=== PATIENT | female | born 1995 | race Hispanic/Latino ===

== ENCOUNTER 2023-04-01 00:01 | Emergency (ER) | payer SELFPAY ==
[~2023-04-01] VITALS: Ht 147.3 cm; Wt 46.3 kg
[2023-04-01] MEDS ORDERED: ONDANSETRON HCL INJ 2MG/ML 2ML 2 MG/ML VIAL IV STA (00:03)
[2023-04-01] MEDS ORDERED: SODIUM CHLORIDE 0.9% 1000ML 1,000 ML IV STA (00:03)
[2023-04-01] MEDS ORDERED: Morphine 4mg INJECTION 4 MG/ML INJ IV ONE (00:15)
[2023-04-01 00:21] LABS: BASOPHILS % 0.3 % (0.0-1.0); HEMATOCRIT 44.5 % (34.2-44.1); HEMOGLOBIN 14.4 g/dL (12.0-16.0); LYMPHOCYTES % 14.5 % (18.0-39.1); MEAN CORPUSCULAR HGB CONC 32.4 g/dL (31-35); MEAN CORPUSCULAR VOLUME 89.7 fL (81-99); MONOCYTES % 4.1 % (4.4-11.3); PLATELET COUNT 382 x10e3/uL (140-360); RED BLOOD COUNT 4.96 x10e6/uL (3.6-5.1); RED CELL DISTRIBUTION WIDTH 12.4 % (11.7-14.4)
[2023-04-01 00:22] LABS: BASOPHILS # (AUTO) 0.1 (0.0-0.1); MONOCYTES # (AUTO) 0.9 (0.2-0.8); NEUTROPHILS # (AUTO) 16.7 (2.1-6.9)
[2023-04-01 00:24] LABS: AMPHETAMINES SCREEN,URINE NEGATIVE (NEGATIVE); BENZODIAZEPINES SCREEN,URINE NEGATIVE (NEGATIVE); PHENCYCLIDINE SCREEN,URINE NEGATIVE (NEGATIVE)
[2023-04-01 00:36] LABS: ALBUMIN 4.6 g/dL (3.5-5.0); ALBUMIN/GLOBULIN RATIO 0.9 (0.8-2.0); ANION GAP 26.9 mmol/L (8-16); CALCIUM 9.5 mg/dL (8.4-10.2); CREATININE, SERUM 1.08 mg/dL (0.57-1.11); POTASSIUM 3.9 mmol/L (3.5-5.1)
[2023-04-01] MEDS ORDERED: PIPERACILLIN/TAZOBACTAM 3.375 GM VIAL ONE (00:42)
[2023-04-01] MEDS ORDERED: IOPAMIDOL 370 MG/ML 100 ML INFUS..BTL INJ ONE (00:44)
[2023-04-01] MEDS ORDERED: INSULIN REGULAR, HUMAN 3ML VL 100 UNIT in SODIUM CHLORIDE 0.9% 100 ML IV SCH ×2 (00:45)
[2023-04-01] MEDS ORDERED: Morphine 4mg INJECTION 4 MG/ML INJ IV PRN (00:45)
[2023-04-01] MEDS ORDERED: SODIUM CHLORIDE 0.9% 1000ML 1,000 ML IV SCH ×2 (00:45)
[2023-04-01] MEDS ORDERED: POTASSIUM CHLORIDE 20MEQ/100ML 200 ML IV PRN (00:45)
[2023-04-01] MEDS ORDERED: MAGNESIUM SULF 1GRAM/DEXTROSE 100 ML IV PRN (00:45)
[2023-04-01] MEDS ORDERED: DEXTROSE 5%/0.45% SOD CHL 1,000 ML IV SCH (00:45)
[2023-04-01] MEDS ORDERED: ONDANSETRON HCL INJ 2MG/ML 2ML 2 MG/ML VIAL IV PRN (00:45)
[2023-04-01 01:25] LABS: LIPASE 13 U/L (8-78)
[2023-04-01] MEDS ORDERED: FENTANYL CITRATE/PF 100MCG/2 ML INJ IV STA (01:48)
[2023-04-01 02:40] VITALS: BP 152/104; PULSE 122; RESP 27; TEMP 96; O2SAT 100
== END 2023-04-01 03:09 | disposition other institution (70) ==
LOC: ER 00:04
DX: R10.13 Epigastric pain (principal); R11.2 Nausea with vomiting, unspecified; E11.10 Type 2 diabetes mellitus with ketoacidosis without coma; E11.65 Type 2 diabetes mellitus with hyperglycemia; R94.31 Abnormal electrocardiogram [ECG] [EKG]; Z20.822 Contact with and (suspected) exposure to COVID-19
CPT/HCPCS: 36415; 71045; 74177; 80053; 80307; 80320; 81025; 82948; 83605; 83690; 85025; 87040; 99284; J2270; J2405; J2543; J3010; J7030; J7050; Q9967; U0002

== ENCOUNTER 2025-05-04 15:47 | Inpatient (IN) | payer SELFPAY ==
[~2025-05-04] VITALS: Ht 142.2 cm; Wt 50.3 kg
[2025-05-04] VITALS (18 sets, daily range): BP systolic 108–126; BP diastolic 66–81; PULSE 101–129; RESP 18–36; TEMP 90.7–98.2; O2SAT 98–100
[2025-05-04] MEDS ORDERED: POTASSIUM CHLORIDE 20MEQ/100ML 200 ML IV PRN (16:00)
[2025-05-04 16:03] LABS: BASOPHILS # (AUTO) 0.1 (0.0-0.1); BASOPHILS % 0.3 % (0.0-1.0); EOSINOPHILS # (AUTO) 0.1 (0.0-0.4); EOSINOPHILS % 0.4 % (0.0-6.0); HEMOGLOBIN 14.3 g/dL (12.0-16.0); LYMPHOCYTES # (AUTO) 4.2 (1.0-3.2); LYMPHOCYTES % 20.7 % (18.0-39.1); MEAN CORPUSCULAR HEMOGLOBIN 29.5 pg (28-32); MEAN CORPUSCULAR HGB CONC 32.5 g/dL (31-35); MEAN CORPUSCULAR VOLUME 90.9 fL (81-99); MONOCYTES # (AUTO) 1.2 (0.2-0.8); MONOCYTES % 5.6 % (4.4-11.3); NEUTROPHILS # (AUTO) 14.6 (2.1-6.9); NEUTROPHILS % 71.8 % (38.7-80.0); PLATELET COUNT 320 x10e3/uL (140-360); RED BLOOD COUNT 4.84 x10e6/uL (3.6-5.1); WHITE BLOOD COUNT 20.39 x10e3/uL (4.8-10.8)
[2025-05-04] MEDS: LACTATED RINGER'S 1,000 ML INJ ONE ×3 (16:07→16:31)
[2025-05-04] MEDS ORDERED: INSULIN REGULAR, HUMAN 100 UNIT/1 ML ONE (16:15)
[2025-05-04 16:23] LABS: ALANINE AMINOTRANSFERASE 42 IU/L (0-55); ALBUMIN 4.1 g/dL (3.5-5.0); ALBUMIN/GLOBULIN RATIO 0.8 (0.8-2.0); ALKALINE PHOSPHATASE 91 IU/L (40-150); BILIRUBIN,TOTAL 0.3 mg/dL (0.2-1.2); BLOOD UREA NITROGEN 26 mg/dL (7-26); BUN/CREATININE RATIO 17 (6-25); CALCIUM 9.6 mg/dL (8.4-10.2); CHLORIDE 101 mmol/L (98-107); CREATININE, SERUM 1.54 mg/dL (0.57-1.11); EST GLOMERULAR FILTRATION RATE 46 ML/MIN (>=60); POTASSIUM 4.1 mmol/L (3.5-5.1); SODIUM 129 mmol/L (136-145); TOTAL PROTEIN 9.3 g/dL (6.5-8.1)
[2025-05-04 16:25] LABS: ANION GAP 27.1 mmol/L (8-16)
[2025-05-04 16:26] LABS: CARBON DIOXIDE < 5 mmol/L (22-29); GLUCOSE 518 mg/dL (74-118)
[2025-05-04 16:40] LABS: ABG BASE EXCESS < -30.0 mmol/L (-2 - 3); ABG HCO3 1 mmol/L (22-26); ABG PCO2 6 mmHg (35-45); ABG PH 6.97 (7.35-7.45); ABG PO2 166 mmHg (80-105); ABG TCO2 < 5
[2025-05-04 16:42] LABS: ACETAMINOPHEN < 3.0 ug/mL (10-30); ETHANOL < 10.0 mg/dL (0.0-10.0)
[2025-05-04] MEDS: INSULIN REGULAR, HUMAN 100 UNIT/1 ML IV ONE (16:43)
[2025-05-04] MEDS: INSULIN REGULAR, HUMAN 3ML VL 100 UNIT in SODIUM CHLORIDE 0.9% 99 ML IV SCH (17:01)
[2025-05-04] MEDS: SODIUM CHLORIDE 0.9% 1000ML 1,000 ML IV SCH (17:02)
[2025-05-04 17:11] LABS: AMPHETAMINES SCREEN,URINE NEGATIVE (NEGATIVE); BENZODIAZEPINES SCREEN,URINE NEGATIVE (NEGATIVE); CANNABINOIDS SCREEN,URINE NEGATIVE (NEGATIVE); COCAINE SCREEN,URINE NEGATIVE (NEGATIVE); METHADONE SCREEN, URINE NEGATIVE (NEGATIVE); OPIATES SCREEN,URINE NEGATIVE (NEGATIVE); PHENCYCLIDINE SCREEN,URINE NEGATIVE (NEGATIVE)
[2025-05-04 17:25] LABS: BILIRUBIN,URINE NEGATIVE (NEGATIVE); CLARITY,URINE SL CLOUDY (CLEAR); COLOR,URINE YELLOW (YELLOW); GLUCOSE, URINE 500 (NEGATIVE); KETONES,URINE >=160 (NEGATIVE); LEUKOCYTE ESTERASE ,URINE NEGATIVE (NEGATIVE); NITRITE,URINE NEGATIVE (NEGATIVE); PH,URINE 5.5 (5 - 7); PROTEIN,URINE DIPSTICK 2+ (NEGATIVE); URINE UROBILINOGEN 0.2 mg/dL (0.2 - 1)
[2025-05-04 17:26] LABS: BACTERIA,URINE MODERATE /HPF; EPITHELIAL CELLS,URINE MODERATE /LPF; TRANSITIONAL EPI CELLS,URINE MODERATE
[2025-05-04 19:16] LABS: CHOL/HDL RATIO 5.7 (3.0-3.6)
[2025-05-04 19:36] LABS: THYROID STIMULATING HORMONE 0.396 uIU/mL (0.350-4.940)
[2025-05-04 20:19] LABS: BLOOD UREA NITROGEN 21 mg/dL (7-26); BUN/CREATININE RATIO 19 (6-25); CALCIUM 8.4 mg/dL (8.4-10.2); CHLORIDE 107 mmol/L (98-107); CREATININE, SERUM 1.09 mg/dL (0.57-1.11); EST GLOMERULAR FILTRATION RATE 70 ML/MIN (>=60); GLUCOSE 341 mg/dL (74-118); MAGNESIUM 1.6 MG/DL (1.3-2.1); POTASSIUM 4.1 mmol/L (3.5-5.1); SODIUM 128 mmol/L (136-145)
[2025-05-04 20:43] LABS: ANION GAP 20.1 mmol/L (8-16); CARBON DIOXIDE < 5 mmol/L (22-29)
[2025-05-04] MEDS: MAGNESIUM SULF 1GRAM/DEXTROSE 100 ML IV PRN (21:03)
[2025-05-05] VITALS (44 sets, daily range): BP systolic 93–131; BP diastolic 56–86; PULSE 85–139; RESP 10–25; TEMP 98–100.4; O2SAT 98–100
[2025-05-05] MEDS: DEXTROSE 5%/0.45% SOD CHL 1,000 ML IV SCH (00:20)
[2025-05-05] MEDS: AMIODARONE HCL 150 MG/100 ML BAG IV ONE (00:59)
[2025-05-05] MEDS: AMIODARONE 900MG 900 MG in Premix Bag 1 BAG IV SCH (01:16)
[2025-05-05 06:44] LABS: BASOPHILS % 0.1 % (0.0-1.0); HEMATOCRIT 33.7 % (34.2-44.1); HEMOGLOBIN 11.4 g/dL (12.0-16.0); LYMPHOCYTES # (AUTO) 1.1 (1.0-3.2); MEAN CORPUSCULAR HEMOGLOBIN 29.3 pg (28-32); MEAN CORPUSCULAR HGB CONC 33.8 g/dL (31-35); MEAN CORPUSCULAR VOLUME 86.6 fL (81-99); MONOCYTES # (AUTO) 0.7 (0.2-0.8); MONOCYTES % 7.2 % (4.4-11.3); NEUTROPHILS # (AUTO) 7.8 (2.1-6.9); NEUTROPHILS % 80.9 % (38.7-80.0); PLATELET COUNT 208 x10e3/uL (140-360); RED BLOOD COUNT 3.89 x10e6/uL (3.6-5.1); RED CELL DISTRIBUTION WIDTH 11.9 % (11.7-14.4); WHITE BLOOD COUNT 9.65 x10e3/uL (4.8-10.8)
[2025-05-05 07:17] LABS: ANION GAP 11.5 mmol/L (8-16); CALCIUM 7.9 mg/dL (8.4-10.2); CREATININE, SERUM 0.84 mg/dL (0.57-1.11); POTASSIUM 3.5 mmol/L (3.5-5.1)
[2025-05-05 07:59] LABS: ABG BASE EXCESS < -30.0 mmol/L (-2 - 3); ABG HCO3 1 mmol/L (22-26); ABG PH 6.97 (7.35-7.45); ABG PO2 166 mmHg (80-105); ABG TCO2 < 5
[2025-05-05] MEDS: ONDANSETRON HCL INJ 2MG/ML 2ML 2 MG/ML VIAL IV PRN (08:53)
[2025-05-05] MEDS: ACETAMINOPHEN 325 MG TAB PO PRN (12:03)
[2025-05-05 14:20] LABS: FREE T4 (FREE THYROXINE) 1.08 ng/dL (0.8-1.8); THYROID STIMULATING HORMONE 0.218 uIU/mL (0.350-4.940)
[2025-05-05 15:09] LABS: ANION GAP 10.9 mmol/L (8-16); CALCIUM 7.7 mg/dL (8.4-10.2); CREATININE, SERUM 0.76 mg/dL (0.57-1.11)
[2025-05-05 15:12] LABS: POTASSIUM 2.9 mmol/L (3.5-5.1)
[2025-05-05] MEDS: POTASSIUM CHLORIDE 20MEQ/100ML 100 ML INJ PRN (15:38)
[2025-05-05] MEDS: POTASSIUM CHLORIDE 20 MEQ TAB CR PO STA (15:38)
[2025-05-06] VITALS (25 sets, daily range): BP systolic 103–136; BP diastolic 60–85; PULSE 96–143; RESP 16–31; TEMP 98.8–102.6; O2SAT 99–100
[2025-05-06 02:04] LABS: ANION GAP 13.3 mmol/L (8-16); CALCIUM 8.2 mg/dL (8.4-10.2); CREATININE, SERUM 0.74 mg/dL (0.57-1.11)
[2025-05-06 02:06] LABS: POTASSIUM 3.3 mmol/L (3.5-5.1)
[2025-05-06] MEDS: AMIODARONE 900MG 500 ML IV ONE ×2 (04:09→04:10)
[2025-05-06 06:50] LABS: BASOPHILS % 0.2 % (0.0-1.0); HEMATOCRIT 31.2 % (34.2-44.1); HEMOGLOBIN 11.1 g/dL (12.0-16.0); LYMPHOCYTES # (AUTO) 0.8 (1.0-3.2); LYMPHOCYTES % 15.3 % (18.0-39.1); MEAN CORPUSCULAR HEMOGLOBIN 29.4 pg (28-32); MEAN CORPUSCULAR HGB CONC 35.6 g/dL (31-35); MEAN CORPUSCULAR VOLUME 82.8 fL (81-99); MONOCYTES # (AUTO) 0.3 (0.2-0.8); MONOCYTES % 5.3 % (4.4-11.3); NEUTROPHILS # (AUTO) 3.8 (2.1-6.9); NEUTROPHILS % 78.2 % (38.7-80.0); PLATELET COUNT 163 x10e3/uL (140-360); RED BLOOD COUNT 3.77 x10e6/uL (3.6-5.1); RED CELL DISTRIBUTION WIDTH 12.1 % (11.7-14.4)
[2025-05-06 07:28] LABS: ALBUMIN/GLOBULIN RATIO 0.8 (0.8-2.0); ANION GAP 14.4 mmol/L (8-16); BILIRUBIN,TOTAL 0.3 mg/dL (0.2-1.2); CALCIUM 8.1 mg/dL (8.4-10.2); CREATININE, SERUM 0.75 mg/dL (0.57-1.11); TOTAL PROTEIN 6.6 g/dL (6.5-8.1)
[2025-05-06 07:33] LABS: POTASSIUM 3.4 mmol/L (3.5-5.1)
[2025-05-06] MEDS: POTASSIUM CHLORIDE 20MEQ/100ML 100 ML INJ PRN (10:44)
[2025-05-06 13:33] LABS: ANION GAP 12.8 mmol/L (8-16); CREATININE, SERUM 0.75 mg/dL (0.57-1.11); MAGNESIUM 1.6 MG/DL (1.3-2.1)
[2025-05-06 13:39] LABS: POTASSIUM 2.8 mmol/L (3.5-5.1)
[2025-05-06] MEDS: MAGNESIUM SULF 1GRAM/DEXTROSE 100 ML IV PRN (14:03)
[2025-05-06] MEDS: INSULIN REGULAR, HUMAN 3ML VL 100 UNIT in SODIUM CHLORIDE 0.9% 99 ML IV SCH (17:44)
[2025-05-06] MEDS ORDERED: ACETAMINOPHEN 325 MG TAB PO PRN (20:00)
[2025-05-06] MEDS: SODIUM CHLORIDE 0.9% 1000ML 1,000 ML IV ONE (20:18)
[2025-05-06] MEDS: INSULIN GLARGINE 100 UNITS/ML VIAL SQ SCH (20:28)
[2025-05-06 21:03] LABS: ANION GAP 15.1 mmol/L (8-16); BLOOD UREA NITROGEN < 5 mg/dL (7-26); CHLORIDE 107 mmol/L (98-107); CREATININE, SERUM 0.78 mg/dL (0.57-1.11); EST GLOMERULAR FILTRATION RATE 105 ML/MIN (>=60); GLUCOSE 148 mg/dL (74-118); MAGNESIUM 1.8 MG/DL (1.3-2.1); SODIUM 128 mmol/L (136-145)
[2025-05-06 21:04] LABS: POTASSIUM 3.1 mmol/L (3.5-5.1)
[2025-05-06 21:05] LABS: BUN/CREATININE RATIO 6 (6-25)
[2025-05-06 21:06] LABS: CARBON DIOXIDE 9 mmol/L (22-29)
[2025-05-06 21:15] LABS: INFLUENZA A AG NEGATIVE (NEGATIVE)
[2025-05-06 21:16] LABS: CORONAVIRUS COVID-19 AG NEGATIVE (NEGATIVE); INFLUENZA B AG NEGATIVE (NEGATIVE)
[2025-05-07] VITALS (21 sets, daily range): BP systolic 95–136; BP diastolic 64–102; PULSE 105–140; RESP 14–27; TEMP 98.2–102.3; O2SAT 99–100
[2025-05-07 07:38] LABS: ANION GAP 11.7 mmol/L (8-16); BLOOD UREA NITROGEN < 5 mg/dL (7-26); CALCIUM 7.2 mg/dL (8.4-10.2); CHLORIDE 111 mmol/L (98-107); CREATININE, SERUM 0.75 mg/dL (0.57-1.11); EST GLOMERULAR FILTRATION RATE 110 ML/MIN (>=60); GLUCOSE 214 mg/dL (74-118); MAGNESIUM 1.5 MG/DL (1.3-2.1); SODIUM 128 mmol/L (136-145)
[2025-05-07 07:41] LABS: BUN/CREATININE RATIO 7 (6-25); POTASSIUM 2.7 mmol/L (3.5-5.1)
[2025-05-07 07:42] LABS: CARBON DIOXIDE 8 mmol/L (22-29)
[2025-05-07] MEDS: ACETAMINOPHEN 1000 MG/100 ML IV ONE (08:14)
[2025-05-07 08:32] LABS: HIV 1&2 AB SCREEN NON-REACTIVE (NONREACTIVE); HIV- 1 P24 AG SCREEN NON-REACTIVE (NONREACTIVE)
[2025-05-07] MEDS: INSULIN LISPRO 100 UNIT/1 ML 3ML VIAL SQ ONE (13:09)
[2025-05-07] MEDS: DEXTROSE 5%/0.45% SOD CHL 1,000 ML IV SCH (14:02)
[2025-05-07] MEDS: INSULIN LISPRO 100 UNIT/1 ML 3ML VIAL SQ SCH ×2 (16:30→16:31)
[2025-05-07 17:08] LABS: ANION GAP 13.3 mmol/L (8-16); CALCIUM 7.9 mg/dL (8.4-10.2); CREATININE, SERUM 0.72 mg/dL (0.57-1.11)
[2025-05-07 17:16] LABS: POTASSIUM 3.3 mmol/L (3.5-5.1)
[2025-05-07] MEDS ORDERED: ONDANSETRON HCL INJ 2MG/ML 2ML 2 MG/ML VIAL ONE (17:53)
[2025-05-07] MEDS ORDERED: SUGAMMADEX SODIUM 200 MG/2 ML VIAL IV ONE (17:54)
[2025-05-07] MEDS: INSULIN GLARGINE 100 UNITS/ML VIAL SQ SCH (20:43)
[2025-05-08] VITALS (20 sets, daily range): BP systolic 91–125; BP diastolic 64–86; PULSE 103–144; RESP 14–26; TEMP 97.8–103.2; O2SAT 98–100
[2025-05-08 06:44] LABS: BASOPHILS % 0.6 % (0.0-1.0); EOSINOPHILS % 0.2 % (0.0-6.0); HEMATOCRIT 31.3 % (34.2-44.1); HEMOGLOBIN 11.2 g/dL (12.0-16.0); LYMPHOCYTES # (AUTO) 1.2 (1.0-3.2); LYMPHOCYTES % 18.8 % (18.0-39.1); MEAN CORPUSCULAR HEMOGLOBIN 29.6 pg (28-32); MEAN CORPUSCULAR HGB CONC 35.8 g/dL (31-35); MEAN CORPUSCULAR VOLUME 82.6 fL (81-99); MONOCYTES # (AUTO) 0.2 (0.2-0.8); MONOCYTES % 3.1 % (4.4-11.3); NEUTROPHILS # (AUTO) 4.9 (2.1-6.9); NEUTROPHILS % 76.2 % (38.7-80.0); PLATELET COUNT 101 x10e3/uL (140-360); RED BLOOD COUNT 3.79 x10e6/uL (3.6-5.1); RED CELL DISTRIBUTION WIDTH 12.4 % (11.7-14.4); WHITE BLOOD COUNT 6.37 x10e3/uL (4.8-10.8)
[2025-05-08 06:57] LABS: ALBUMIN 2.5 g/dL (3.5-5.0); ALBUMIN/GLOBULIN RATIO 0.7 (0.8-2.0); ANION GAP 12.9 mmol/L (8-16); BILIRUBIN,TOTAL 0.6 mg/dL (0.2-1.2); CALCIUM 7.5 mg/dL (8.4-10.2); CREATININE, SERUM 0.65 mg/dL (0.57-1.11); TOTAL PROTEIN 6.3 g/dL (6.5-8.1)
[2025-05-08 07:07] LABS: POTASSIUM 2.9 mmol/L (3.5-5.1)
[2025-05-08] MEDS: POTASSIUM CHLORIDE 10MEQ EA PO ONE (08:05)
[2025-05-08] MEDS: POTASSIUM CHLORIDE 20MEQ/100ML 200 ML IV PRN (10:49)
[2025-05-08 12:01] LABS: BAND NEUTROPHILS % (MANUAL) 29 %; LYMPHOCYTES % (MANUAL) 18 % (19-48); MONOCYTES % (MANUAL) 2 % (3.4-9.0); NEUTROPHILS % (MANUAL) 51 % (40-74); PLATELET ESTIMATE SLIGHTLY DECREASED; PLATELET MORPHOLOGY COMMENT NORMAL; RBC MORPHOLOGY COMMENT NORMAL
[2025-05-08] MEDS ORDERED: D5.45%NS/KCL 20MEQ 1,000 ML IV ONE (18:45)
[2025-05-08] MEDS ORDERED: POTASSIUM CHLORIDE 20 MEQ TAB CR PO SCH (19:00)
[2025-05-08] MEDS: D5.45%NS/KCL 20MEQ 1,000 ML IV ONE (19:28)
[2025-05-09] VITALS (24 sets, daily range): BP systolic 87–133; BP diastolic 58–92; PULSE 113–147; RESP 15–23; TEMP 98.3–101; O2SAT 98–100
[2025-05-09 06:38] LABS: BASOPHILS % 0.3 % (0.0-1.0); HEMATOCRIT 31.4 % (34.2-44.1); HEMOGLOBIN 11.2 g/dL (12.0-16.0); LYMPHOCYTES # (AUTO) 1.3 (1.0-3.2); LYMPHOCYTES % 18.3 % (18.0-39.1); MEAN CORPUSCULAR HEMOGLOBIN 29.2 pg (28-32); MEAN CORPUSCULAR HGB CONC 35.7 g/dL (31-35); MONOCYTES # (AUTO) 0.2 (0.2-0.8); MONOCYTES % 2.5 % (4.4-11.3); NEUTROPHILS # (AUTO) 5.7 (2.1-6.9); NEUTROPHILS % 77.9 % (38.7-80.0); PLATELET COUNT 124 x10e3/uL (140-360); RED BLOOD COUNT 3.83 x10e6/uL (3.6-5.1); RED CELL DISTRIBUTION WIDTH 12.8 % (11.7-14.4); WHITE BLOOD COUNT 7.32 x10e3/uL (4.8-10.8)
[2025-05-09 07:03] LABS: ALBUMIN 2.6 g/dL (3.5-5.0); ALBUMIN/GLOBULIN RATIO 0.7 (0.8-2.0); ANION GAP 14.9 mmol/L (8-16); BILIRUBIN,TOTAL 0.7 mg/dL (0.2-1.2); CALCIUM 7.7 mg/dL (8.4-10.2); CREATININE, SERUM 0.75 mg/dL (0.57-1.11); POTASSIUM 3.9 mmol/L (3.5-5.1); TOTAL PROTEIN 6.6 g/dL (6.5-8.1)
[2025-05-09 07:23] LABS: T3 UPTAKE 31.99 % (22.5-37.0)
[2025-05-09 07:24] LABS: T4 (THYROXINE) 7.55 ug/dL (4.5-10.9); THYROID STIMULATING HORMONE 1.414 uIU/mL (0.350-4.940)
[2025-05-09] MEDS: POTASSIUM CHLORIDE 40 MEQ in DEXTROSE 5%/0.45% SOD CHL 1,000 ML IV ONE (09:39)
[2025-05-09] MEDS: SODIUM CHLORIDE 0.9% 500ML 500 ML IV ONE (10:48)
[2025-05-09] MEDS: Doxycycline IV 100 MG in SODIUM CHLORIDE 0.9% 100 ML IV SCH (14:05)
[2025-05-09] MEDS ORDERED: SODIUM CHLORIDE 0.9% 100 ML ONE (15:08)
[2025-05-09] MEDS ORDERED: IOPAMIDOL 370 MG/ML 100 ML INFUS..BTL INJ ONE (15:08)
[2025-05-10] VITALS (12 sets, daily range): BP systolic 100–121; BP diastolic 66–85; PULSE 109–135; RESP 14–21; TEMP 98–102.8; O2SAT 97–100
[2025-05-10 06:49] LABS: BASOPHILS % 0.3 % (0.0-1.0); HEMATOCRIT 29.1 % (34.2-44.1); HEMOGLOBIN 10.4 g/dL (12.0-16.0); LYMPHOCYTES # (AUTO) 2.3 (1.0-3.2); MEAN CORPUSCULAR HEMOGLOBIN 29.5 pg (28-32); MEAN CORPUSCULAR HGB CONC 35.7 g/dL (31-35); MEAN CORPUSCULAR VOLUME 82.4 fL (81-99); MONOCYTES # (AUTO) 0.5 (0.2-0.8); MONOCYTES % 6.5 % (4.4-11.3); NEUTROPHILS # (AUTO) 4.3 (2.1-6.9); NEUTROPHILS % 60.4 % (38.7-80.0); PLATELET COUNT 140 x10e3/uL (140-360); RED BLOOD COUNT 3.53 x10e6/uL (3.6-5.1); RED CELL DISTRIBUTION WIDTH 12.7 % (11.7-14.4); WHITE BLOOD COUNT 7.13 x10e3/uL (4.8-10.8)
[2025-05-10 07:22] LABS: ALBUMIN 2.3 g/dL (3.5-5.0); ALBUMIN/GLOBULIN RATIO 0.6 (0.8-2.0); ANION GAP 13.9 mmol/L (8-16); BILIRUBIN,TOTAL 0.9 mg/dL (0.2-1.2); CALCIUM 7.5 mg/dL (8.4-10.2); CREATININE, SERUM 0.64 mg/dL (0.57-1.11); POTASSIUM 3.9 mmol/L (3.5-5.1); TOTAL PROTEIN 6.1 g/dL (6.5-8.1)
[2025-05-10 10:53] LABS: LYMPHOCYTES % (MANUAL) 37 % (19-48); MONOCYTES % (MANUAL) 4 % (3.4-9.0); NEUTROPHILS % (MANUAL) 56 % (40-74); REACTIVE LYMPHOCYTES 3
[2025-05-10 10:54] LABS: PLATELET ESTIMATE ADEQUATE; PLATELET MORPHOLOGY COMMENT NORMAL; RBC MORPHOLOGY COMMENT NORMAL
[2025-05-10] MEDS: DEXTROSE 50% SYRINGE 50 ML IV PRN (16:32)
[2025-05-11] VITALS (13 sets, daily range): BP systolic 89–113; BP diastolic 54–80; PULSE 102–131; RESP 13–21; TEMP 98–100.7; O2SAT 98–100
[2025-05-11 09:54] LABS: C-REACTIVE PROTEIN 251 mg/L (0-10)
[2025-05-11 11:12] LABS: RHEUMATOID FACTOR <10.0 IU/mL (<14.0)
[2025-05-11 13:42] LABS: CYCLIC CITRULLINATED PEPTID AB 3 units (0-19)
[2025-05-11] MEDS: INSULIN LISPRO 100 UNIT/1 ML 3ML VIAL SQ SCH (18:01)
[2025-05-12] VITALS (19 sets, daily range): BP systolic 97–119; BP diastolic 64–81; PULSE 101–130; RESP 14–23; TEMP 97.8–98.8; O2SAT 98–100
[2025-05-12 06:49] LABS: ALBUMIN 2.4 g/dL (3.5-5.0); ALBUMIN/GLOBULIN RATIO 0.5 (0.8-2.0); ANION GAP 14.7 mmol/L (8-16); BILIRUBIN,TOTAL 0.8 mg/dL (0.2-1.2); CALCIUM 8.2 mg/dL (8.4-10.2); CREATININE, SERUM 0.83 mg/dL (0.57-1.11); POTASSIUM 3.7 mmol/L (3.5-5.1); TOTAL PROTEIN 7.2 g/dL (6.5-8.1)
[2025-05-13] VITALS (8 sets, daily range): BP systolic 94–109; BP diastolic 61–74; PULSE 92–107; RESP 17–18; TEMP 97.6–98.6; O2SAT 99–100
[2025-05-13] MEDS: SODIUM CHLORIDE 0.9% 250ML 250 ML ONE (00:23)
[2025-05-13 07:00] LABS: BASOPHILS % 0.4 % (0.0-1.0); EOSINOPHILS % 0.4 % (0.0-6.0); HEMATOCRIT 24.7 % (34.2-44.1); HEMOGLOBIN 8.6 g/dL (12.0-16.0); LYMPHOCYTES # (AUTO) 3.3 (1.0-3.2); LYMPHOCYTES % 49.2 % (18.0-39.1); MEAN CORPUSCULAR HEMOGLOBIN 29.5 pg (28-32); MEAN CORPUSCULAR HGB CONC 34.8 g/dL (31-35); MEAN CORPUSCULAR VOLUME 84.6 fL (81-99); MONOCYTES # (AUTO) 0.7 (0.2-0.8); MONOCYTES % 9.7 % (4.4-11.3); NEUTROPHILS # (AUTO) 2.7 (2.1-6.9); NEUTROPHILS % 39.9 % (38.7-80.0); PLATELET COUNT 241 x10e3/uL (140-360); RED BLOOD COUNT 2.92 x10e6/uL (3.6-5.1); RED CELL DISTRIBUTION WIDTH 13.1 % (11.7-14.4); WHITE BLOOD COUNT 6.79 x10e3/uL (4.8-10.8)
[2025-05-13 07:07] LABS: ALBUMIN/GLOBULIN RATIO 0.5 (0.8-2.0); ANION GAP 13.7 mmol/L (8-16); BILIRUBIN,TOTAL 0.6 mg/dL (0.2-1.2); CALCIUM 7.7 mg/dL (8.4-10.2); CREATININE, SERUM 0.7 mg/dL (0.57-1.11); POTASSIUM 3.7 mmol/L (3.5-5.1); TOTAL PROTEIN 6.2 g/dL (6.5-8.1)
[2025-05-13 11:15] LABS: EOSINOPHILS % (MANUAL) 2 % (0-7); LYMPHOCYTES % (MANUAL) 54 % (19-48); MONOCYTES % (MANUAL) 6 % (3.4-9.0); NEUTROPHILS % (MANUAL) 38 % (40-74); PLATELET ESTIMATE ADEQUATE; PLATELET MORPHOLOGY COMMENT NORMAL; RBC MORPHOLOGY COMMENT NORMAL
[2025-05-13] MEDS ORDERED: INSULIN LISPRO 100 UNIT/1 ML 3ML VIAL SQ SCH (16:30)
[2025-05-13] MEDS: INSULIN LISPRO 100 UNIT/1 ML 3ML VIAL SQ SCH (17:36)
[2025-05-13] MEDS: POLYETHYLENE GLYCOL 3350 17 GM PACK PO SCH (17:38)
[2025-05-14] VITALS (9 sets, daily range): BP systolic 72–119; BP diastolic 63–80; PULSE 86–108; RESP 18–20; TEMP 97.6–98.5; O2SAT 100
[2025-05-14 05:54] LABS: MYCOPLASMA PNEUMO IGG <100 U/mL (0-99); MYCOPLASMA PNEUMO IGM <770 U/mL (0-769)
[2025-05-14 06:33] LABS: BASOPHILS % 0.5 % (0.0-1.0); EOSINOPHILS # (AUTO) 0.1 (0.0-0.4); EOSINOPHILS % 0.8 % (0.0-6.0); HEMATOCRIT 24.5 % (34.2-44.1); HEMOGLOBIN 8.2 g/dL (12.0-16.0); LYMPHOCYTES # (AUTO) 3.2 (1.0-3.2); LYMPHOCYTES % 54.3 % (18.0-39.1); MEAN CORPUSCULAR HEMOGLOBIN 29.4 pg (28-32); MEAN CORPUSCULAR HGB CONC 33.5 g/dL (31-35); MEAN CORPUSCULAR VOLUME 87.8 fL (81-99); MONOCYTES # (AUTO) 0.5 (0.2-0.8); MONOCYTES % 7.5 % (4.4-11.3); NEUTROPHILS # (AUTO) 2.2 (2.1-6.9); NEUTROPHILS % 36.4 % (38.7-80.0); PLATELET COUNT 259 x10e3/uL (140-360); RED BLOOD COUNT 2.79 x10e6/uL (3.6-5.1); RED CELL DISTRIBUTION WIDTH 12.8 % (11.7-14.4); WHITE BLOOD COUNT 5.97 x10e3/uL (4.8-10.8)
[2025-05-14 07:05] LABS: ALBUMIN 2.1 g/dL (3.5-5.0); ALBUMIN/GLOBULIN RATIO 0.5 (0.8-2.0); BILIRUBIN,TOTAL 0.4 mg/dL (0.2-1.2); CREATININE, SERUM 0.71 mg/dL (0.57-1.11); TOTAL PROTEIN 6.4 g/dL (6.5-8.1)
[2025-05-14 10:39] LABS: EOSINOPHILS % (MANUAL) 1 % (0-7); LYMPHOCYTES % (MANUAL) 39 % (19-48); MONOCYTES % (MANUAL) 7 % (3.4-9.0); NEUTROPHILS % (MANUAL) 52 % (40-74); PLATELET ESTIMATE ADEQUATE; PLATELET MORPHOLOGY COMMENT NORMAL; RBC MORPHOLOGY COMMENT NORMAL; REACTIVE LYMPHOCYTES 1
[2025-05-14] MEDS: INSULIN LISPRO 100 UNIT/1 ML 3ML VIAL SQ SCH (16:30)
[2025-05-15] VITALS (7 sets, daily range): BP systolic 108–120; BP diastolic 76–82; PULSE 87–105; RESP 17–18; TEMP 97.8–98.7; O2SAT 99–100
[2025-05-15] MEDS: INSULIN GLARGINE 100 UNITS/ML VIAL SQ SCH (21:00)
[2025-05-16] VITALS (7 sets, daily range): BP systolic 106–116; BP diastolic 66–81; PULSE 90–101; RESP 16–18; TEMP 98.1–99.3; O2SAT 100
[2025-05-17] VITALS: BP 112/75; PULSE 100; RESP 18; TEMP 98.6; O2SAT 100
[2025-05-17 04:00] VITALS: BP 114/83; PULSE 101; RESP 18; TEMP 98.4; O2SAT 100
[2025-05-17 08:00] VITALS: BP 131/82; PULSE 101; RESP 17; TEMP 99; O2SAT 100
[2025-05-17 09:00] VITALS: BP 131/82; PULSE 101; RESP 17; TEMP 99; O2SAT 100
[2025-05-17] MEDS ORDERED: METFORMIN HCL850 MG PO (11:23)
[2025-05-17] MEDS ORDERED: RELION NOV100 UNIT/1 SQ (11:23)
[2025-05-17] MEDS ORDERED: NOVOLOG100 UNIT/1 SC (11:57)
[2025-05-17 12:00] VITALS: BP 98/62; PULSE 97; RESP 17; TEMP 98.6; O2SAT 100
[2025-05-17] MEDS ORDERED: humalog SQ (12:01)
[2025-05-17] MEDS ORDERED: LANTUS SQ (12:05)
== END 2025-05-17 14:30 | disposition home or self-care (01) | DRG 637 ==
LOC: ER 15:53 → ERHOLD 16:47 → ICU 17:25 → MED/SURG 05-12 22:27
PROVIDERS: ADMIT Family Medicine; ATTEND Family Medicine
PROC: 4A133R1 Monitoring of Arterial Saturation, Peripheral, Percutaneous Approach (ICD-10-PCS; principal; 2025-05-04)
DX: E10.11 Type 1 diabetes mellitus with ketoacidosis with coma (principal); G93.41 Metabolic encephalopathy; J18.9 Pneumonia, unspecified organism; I82.612 Acute embolism and thrombosis of superficial veins of left upper extremity; I82.622 Acute embolism and thrombosis of deep veins of left upper extremity; I48.92 Unspecified atrial flutter; N17.9 Acute kidney failure, unspecified; E87.1 Hypo-osmolality and hyponatremia; D64.9 Anemia, unspecified; E86.0 Dehydration; R00.0 Tachycardia, unspecified; D72.829 Elevated white blood cell count, unspecified; R53.81 Other malaise; R50.9 Fever, unspecified; R55 Syncope and collapse; H90.5 Unspecified sensorineural hearing loss; Z11.52 Encounter for screening for COVID-19; Z83.3 Family history of diabetes mellitus
CPT/HCPCS: 36415; 36600; 51703; 71045; 71260; 74176; 80048; 80053; 80061; 80307; 80320; 80329; 81001; 81025; 82805; 82948; 83036; 83690; 83735; 84436; 84439; 84443; 84479; 84681; 84702; 85025; 86039; 86140; 86200; 86431; 86738; 87040; 87390; 87449; 93005; 93971; 94799; 99252; 99285; G0433; G0435; J0696; J1815; J2405; J2543; J3475; J3480; J7030; J7040; J7050; J7799; Q9967